=== PATIENT | male | born 1980 | race Caucasian/White ===

== ENCOUNTER 2018-01-26 08:15 | Emergency (ER) | payer BC ==
[2018-01-26] MEDS ORDERED: KETOROLAC 30 MG/ML INJ ONE (08:51)
[2018-01-26] MEDS ORDERED: ONDANSETRON 4 MG/2 ML VIAL ONE (08:51)
[2018-01-26] MEDS ORDERED: NA CHLORIDE 0.9% 1,000 ML ONE (08:51)
[2018-01-26] MEDS ORDERED: FENTANYL CITR 100 MCG/2 ML ONE ×2 (08:51→10:23)
[2018-01-26 08:58] LABS: Absolute Lymphocytes (CBC) 2.1 K/uL (0.7-4.9); Absolute Monocytes 0.8 K/uL (0.1-1.3); Absolute Neutrophil 2.7 K/uL (1.8-8.0); Basophils % 1.2 % (0-1.3); Eosinophils % 6.1 % (0-4.4); Hematocrit 52.1 % (39.6-49.0); Lymphocytes % 35.2 % (15.3-44.8); MCH 28.5 pg (27.0-35.0); MCV 87.8 fL (80-100); Monocytes % 12.5 % (3.3-12.3); RBC Red Blood Cell Count 5.94 M/uL (4.33-5.43)
[2018-01-26 09:13] LABS: Urine Bacteria <20 /HPF (NONE SEEN)
[2018-01-26 09:13] LABS: Urine Blood 3+ (NEG); Urine Glucose NEGATIVE (NEG); Urine Protein 1+ (NEG); Urine Specific Gravity 1.025 (1.005-1.030)
[2018-01-26 09:14] LABS: Urine Culture Reflex Order NOT NEEDED
[2018-01-26 09:23] LABS: Albumin 3.7 g/dL (3.4-5.0); Bilirubin Direct 0.1 mg/dL (0-0.2); Bilirubin Total 0.4 mg/dL (0.2-1.0); Potassium 3.7 mmol/L (3.5-5.1); Protein, Total 7.6 g/dL (6.4-8.2)
--- NOTE | 2018-01-26 09:35 | RAD REPORT ---
EXAM DESCRIPTION: CT - Stone Protocol - 01/26/2018 9:06 am CLINICAL HISTORY: Abdominal pain. Flank pain COMPARISON: October 2016 TECHNIQUE: Computed axial tomography of the abdomen pelvis was obtained without oral or IV contrast. Lack of IV and oral contrast limits evaluation of solid organs, bowel, and vessels. Coronal reformat destiny images were obtained and reviewed. All CT scans are performed using dose optimization technique as appropriate and may include automated exposure control or mA/KV adjustment according to patient size. FINDINGS: Small bilateral renal calculi are present. Mild right hydronephrosis is seen. A ureteral c alculus is not visualized. A 3 millimeter calculus is present within the posterior bladder to the lef t of midline. The liver, spleen, pancreas and adrenals appear grossly normal There is no evidence of diverticulitis. The appendix appears normal IMPRESSION: Mild right hydronephrosis is present without an obstructing calculus. A 3 millimeter aruna culus is present within the bladder which may have recently passed from the right ureter.
--- NOTE | 2018-01-26 10:19 | EDPHYS ---
Physician Documentation [facility] Name: Jyoti Olson Age: 37 yrs Sex: Male : 1980 Arrival Date: 01/26/2018 Time: 08:18 Bed 20 Private MD: Jacky Vidal T ED Physician Garry Wright HPI: 01/26 08:30 This 37 yrs old Male presents to ER via Ambulatory with complaints of jmm Possible Kidney Stone. 08:30 The patient presents with abdominal pain right flank. Onset: The symptoms/episode jmm began/occurred acutely, just prior to arrival. The symptoms radiate to groin. Associated signs and symptoms: Pertinent positives: testicular pain, Pertinent negatives: diarrhea, fever, vomiting. The symptoms are described as achy, sharp. Severity of pain:. The patient has experienced similar episodes in the past. This is a 37 year old male with a history of kidney stones that presents to the ED with right flank pain beginning earlier this morning. Patient states the pain radiates to his right scrotum. Denies ever, denies gross hematuria, denies vomiting. . Historical: - Allergies: 08:36 Naproxen; ch 08:36 Aleve; ch - Home Meds: 08:36 Provigil 100 mg Oral tab twice a day [Active]; testosterone 200 MG TWICE A WEEK ch [Active]; Seroquel 50 mg Oral tab 1 tab [Active]; Crestor oral oral [Active]; - PMHx: 08:36 allergies; Hormone Replacement; Kidney stones; Hyperlipidemia; ch - PSHx: 08:36 hand surgery; mouth; ch - Immunization history:: Adult Immunizations up to date, Flu vaccine is up to date. - Social history:: Smoking status: Patient uses tobacco products, denies chronic smoking, but will smoke occasionally, Patient uses alcohol, occasionally. Patient/guardian denies using street drugs. - Ebola Screening: : Patient negative for fever greater than or equal to 101.5 degrees Fahrenheit, and additional compatible Ebola Virus Disease symptoms Patient denies exposure to infectious person Patient denies travel to an Ebola-affected area in the 21 days before illness onset No symptoms or risks identified at this time. ROS: 08:30 Constitutional: Negative for fever. jmm 08:30 Abdomen/GI: Positive for abdominal pain, nausea. 08:30 Back: Positive for flank pain, on the right. 08:30 : Negative for hematuria. 08:30 Skin: Negative for 08:30 All other systems are negative. Exam: 08:30 Head/Face: atraumatic. [facility] 08:30 Constitutional: The patient appears in no acute distress, alert, awake. 08:30 Constitutional: The patient appears uncomfortable. 08:30 Cardiovascular: Rate: normal. 08:30 Respiratory: the patient does not display signs of respiratory distress, Respirations: normal, Breath sounds: are clear throughout. 08:30 Back: ROM is normal, CVA tenderness, that is moderate, is noted on the right. 08:30 Musculoskeletal/extremity: ROM: intact in all extremities. 08:30 Skin: Appearance: Color: normal in color. 08:30 Neuro: Orientation: is normal, Mentation: is normal, Memory: is normal, Gait: is steady. 08:30 Psych: Behavior/mood is pleasant, cooperative. Vital Signs: 08:36 BP 153 / 106; Pulse 72; Resp 14; Temp 99.1; Pulse Ox 99% on R/A; Weight 93.44 kg; Height 5 ft. 5 in. (165.10 cm); Pain 10/10; 09:35 BP 141 / 82; Pulse 65; Resp 18; Temp 97.9; Pulse Ox 99% on R/A; Pain 7/10; ch 10:45 BP 138 / 90; Pulse 68; Resp 16; Temp 98; Pulse Ox 99% on R/A; Pain 3/10; ch 08:36 Body Mass Index 34.28 (93.44 kg, 165.10 cm) MDM: 08:30 Data reviewed: vital signs, nurses notes. [facility] 08:37 Patient medically screened. [facility] 10:17 Data reviewed: lab test result(s), radiologic studies, CT scan. Counseling: I had a [facility] detailed discussion with the patient and/or guardian regarding: the historical points, exam findings, and any diagnostic results supporting the discharge/admit diagnosis, the presence of at least one elevated blood pressure reading (>120/80) during this emergency department visit, lab results, radiology results, the need for outpatient follow up, to return to the emergency department if symptoms worsen or persist or if there are any questions or concerns that arise at home. Response to treatment: the patient's symptoms have markedly improved after treatment. 07/03 08:38 Order name: Amylase, Serum; Complete Time: 09:26 [facility] 01/26 08:38 Order name: Basic Metabolic Panel; Complete Time: 09:26 [facility] 01/26 08:38 Order name: CBC with Diff; Complete Time: 09:13 [facility] 01/26 08:38 Order name: Creatinine for Radiology; Complete Time: 09:26 [facility] 01/26 08:38 Order name: Hepatic Function; Complete Time: 09:26 [facility] 01/26 08:38 Order name: Lipase; Complete Time: 09:26 [facility] 01/26 08:38 Order name: Urine Microscopic Only; Complete Time: 09:15 [facility] 01/26 08:41 Order name: CT Stone Protocol; Complete Time: 09:41 [facility] 01/26 09:07 Order name: Urine Dipstick--Ancillary (enter results); Complete Time: 09:14 ag 01/26 08:38 Order name: IV Saline Lock; Complete Time: 08:59 [facility] 01/26 08:38 Order name: Labs collected and sent; Complete Time: 08:59 jm 01/26 08:38 Order name: Urine Dipstick-Ancillary (obtain specimen); Complete Time: 08:52 jmm Administered Medications: 08:58 Drug: Zofran 4 mg Route: IVP; Site: left antecubital; ch 09:23 Follow up: Response: No adverse reaction; Marked relief of symptoms ch 08:58 Drug: NS 0.9% 1000 ml Route: IV; Rate: 1 bolus; Site: left antecubital; ch 09:23 Follow up: IV Status: Completed infusion; IV Intake: 1000ml ch 08:58 Drug: fentaNYL (PF) 50 mcg Route: IVP; Site: left antecubital; ch 09:23 Follow up: Response: No adverse reaction; Marked relief of symptoms ch 08:59 Drug: Ketorolac 30 mg Route: IVP; Site: left antecubital; ch 09:23 Follow up: Response: No adverse reaction; Marked relief of symptoms ch 10:18 Drug: fentaNYL (PF) 50 mcg Route: IVP; Site: left antecubital; ch 10:27 Follow up: Response: No adverse reaction; Marked relief of symptoms ch 11:34 Follow up: Response: No adverse reaction; Marked relief of symptoms ch 10:47 Not Given (Duplicate Order): NS 0.9% 1000 ml IV at 1 bolus Per protocol; 1000 mL bolus Disposition: 15:00 Co-signature as Attending Physician, Garry Wright MD I agree with the assessment and [facility] plan of care. Disposition: 01/26/18 10:18 Discharged to Home. Impression: Calculus of ureter, Unspecified renal colic. - Condition is Stable. - Discharge Instructions: Kidney Stones, Ureteral Colic. - Prescriptions for Tylenol- Codeine #3 300-30 mg Oral Tablet - take 1 tablet by ORAL route every 6 hours As needed; 12 tablet. Zofran 4 mg Oral Tablet - take 1 tablet by ORAL route every 12 hours As needed; 12 tablet. - Work release form, Medication Reconciliation Form, Thank You Letter, Antibiotic Education, Prescription Opioid Use form. - Follow up: Jacky Vidal MD; When: 2 - 3 days; Reason: Continuance of care. Signatures: Dispatcher [employer] EDMS Chio Perkins RN RN ch Anderson, Corey, MD MD cha Mickail, Joel, PA PA [facility] Corrections: (The following items were deleted from the chart) 10:47 10:18 01/26/2018 10:18 Discharged to Home. Impression: Calculus of ureter; Unspecified ch renal colic. Condition is Stable. Forms are Medication Reconciliation Form, Thank You Letter, Antibiotic Education, Prescription Opioid Use. Follow up: Jacky Vidal; When: 2 - 3 days; Reason: Continuance of care. sary
--- NOTE | 2018-01-26 10:19 | ER ---
Nurse's Notes [facility] Name: Jyoti Olson Age: 37 yrs Sex: Male : 1980 Arrival Date: 01/26/2018 Time: 08:18 Bed 20 Private MD: Jacky Vidal T Diagnosis: Calculus of ureter;Unspecified renal colic Presentation: 01/26 08:33 Presenting complaint: Patient states: i think i am passing another kidney stone. mid ch back and flank pain since 0530 today. difficulty urinating. Transition of care: patient was not received from another setting of care. Onset of symptoms was January 26, 2018 at 05:30. Risk Assessment: Do you want to hurt yourself or someone else? Patient reports no desire to harm self or others. Initial Sepsis Screen: Does the patient meet any 2 criteria? No. Patient's initial sepsis screen is negative. Does the patient have a suspected source of infection? No. Patient's initial sepsis screen is negative. Care prior to arrival: None. 08:33 Method Of Arrival: Ambulatory 08:33 Acuity: CHANTELLE 3 ch Triage Assessment: 08:36 General: Appears in no apparent distress. uncomfortable, Behavior is cooperative, ch restless. Pain: Complains of pain in low back area, mid back area, right mid back and groin Pain currently is 10 out of 10 on a pain scale. Neuro: No deficits noted. GI: No signs and/or symptoms were reported involving the gastrointestinal system. : Reports pain flank(s), in lower back testicle. Historical: - Allergies: 08:36 Naproxen; 08:36 Aleve; - Home Meds: 08:36 Provigil 100 mg Oral tab twice a day [Active]; testosterone 200 MG TWICE A WEEK [Active]; Seroquel 50 mg Oral tab 1 tab [Active]; Crestor oral oral [Active]; - PMHx: 08:36 allergies; Hormone Replacement; Kidney stones; Hyperlipidemia; ch - PSHx: 08:36 hand surgery; mouth; ch - Immunization history:: Adult Immunizations up to date, Flu vaccine is up to date. - Social history:: Smoking status: Patient uses tobacco products, denies chronic smoking, but will smoke occasionally, Patient uses alcohol, occasionally. Patient/guardian denies using street drugs. - Ebola Screening: : Patient negative for fever greater than or equal to 101.5 degrees Fahrenheit, and additional compatible Ebola Virus Disease symptoms Patient denies exposure to infectious person Patient denies travel to an Ebola-affected area in the 21 days before illness onset No symptoms or risks identified at this time. Screenin:59 Abuse screen: Denies threats or abuse. Denies injuries from another. Nutritional ch screening: No deficits noted. Tuberculosis screening: No symptoms or risk factors identified. Fall Risk None identified. Assessment: 08:59 Reassessment: Patient appears in no apparent distress at this time. pt medicated for ch pain. pt is still restless in room, CT notified pt has been medicated, pt verb understanding of need to hold still for ct. General: Appears in no apparent distress. uncomfortable. 09:35 Reassessment: Patient appears in no apparent distress at this time. Patient and/or ch family updated on plan of care and expected duration. Pain level reassessed. Patient is alert, oriented x 3, equal unlabored respirations, skin warm/dry/pink. Patient states feeling better. Patient states symptoms have improved. 10:27 Reassessment: pt urinates in room, pt has a stone in the urinal. pt states he feels ch better but still hurts. family at bedside, pt to be discharged. 10:45 Reassessment: Patient appears in no apparent distress at this time. No changes from previously documented assessment. Patient and/or family updated on plan of care and expected duration. Pain level reassessed. Patient is alert, oriented x 3, equal unlabored respirations, skin warm/dry/pink. 11:34 GI: Bowel sounds present X 4 quads. Abd is soft and non tender X 4 quads. Vital Signs: 08:36 BP 153 / 106; Pulse 72; Resp 14; Temp 99.1; Pulse Ox 99% on R/A; Weight 93.44 kg; Height 5 ft. 5 in. (165.10 cm); Pain 10/10; 09:35 BP 141 / 82; Pulse 65; Resp 18; Temp 97.9; Pulse Ox 99% on R/A; Pain 7/10; ch 10:45 BP 138 / 90; Pulse 68; Resp 16; Temp 98; Pulse Ox 99% on R/A; Pain 3/10; ch 08:36 Body Mass Index 34.28 (93.44 kg, 165.10 cm) ED Course: 08:18 Patient arrived in ED. mr 08:18 Jacky Vidal MD is Private Physician. mr 08:29 [facility] jmm 08:29 Garry Wright MD is Attending Physician. jmm 08:33 Chio Perkins, RN is Primary Nurse. ch 08:34 Triage completed. ch 08:36 Arm band placed on left wrist. Patient placed in an exam room, on a stretcher, on pulse ch oximetry. 08:45 No apparent distress. Resting quietly. ch 08:45 No provider procedures requiring assistance completed. Inserted saline lock: 18 gauge ch in left antecubital area, using aseptic technique. Blood collected. 08:49 Patient has correct armband on for positive identification. Bed in low position. Call mh5 light in reach. Pulse ox on. NIBP on. 08:49 Urine collected: clean catch specimen, clear. [facility] 08:52 Urine Microscopic Only Sent. [facility] 08:59 Warm blanket given. ch 09:06 CT Stone Protocol In Process Unspecified. EDMS 10:17 Jacky Viadl MD is Referral Physician. jmm 10:45 IV discontinued, intact, bleeding controlled, No redness/swelling at site. Pressure ch dressing applied. Administered Medications: 08:58 Drug: Zofran 4 mg Route: IVP; Site: left antecubital; ch 09:23 Follow up: Response: No adverse reaction; Marked relief of symptoms ch 08:58 Drug: NS 0.9% 1000 ml Route: IV; Rate: 1 bolus; Site: left antecubital; ch 09:23 Follow up: IV Status: Completed infusion; IV Intake: 1000ml ch 08:58 Drug: fentaNYL (PF) 50 mcg Route: IVP; Site: left antecubital; ch 09:23 Follow up: Response: No adverse reaction; Marked relief of symptoms ch 08:59 Drug: Ketorolac 30 mg Route: IVP; Site: left antecubital; ch 09:23 Follow up: Response: No adverse reaction; Marked relief of symptoms ch 10:18 Drug: fentaNYL (PF) 50 mcg Route: IVP; Site: left antecubital; ch 10:27 Follow up: Response: No adverse reaction; Marked relief of symptoms ch 11:34 Follow up: Response: No adverse reaction; Marked relief of symptoms 10:47 Not Given (Duplicate Order): NS 0.9% 1000 ml IV at 1 bolus Per protocol; 1000 mL bolus Intake: 09:23 IV: 1000ml; Total: 1000ml. Outcome: 10:18 Discharge ordered by . sary 10:45 Discharged to home ambulatory, with family. 10:45 Condition: improved 10:45 Discharge instructions given to patient, family, Instructed on discharge instructions, follow up and referral plans. medication usage, Demonstrated understanding of instructions, follow-up care, medications, Prescriptions given X 2. 10:47 Patient left the ED. Signatures: Dispatcher [employer] EDChio Watson, JANEY RN Sadiq Pérez PA PA jmm Rivera, Maria mr Martinez, Maria [facility]
[2018-01-26 11:08] VITALS: O2SAT 99
[2018-01-26 11:10] VITALS: BP 138/90; TEMP 98
== END 2018-01-26 10:47 | disposition home or self-care (01) ==
LOC: ER 08:15
DX: N20.1 Calculus of ureter (principal); N23 Unspecified renal colic; E78.5 Hyperlipidemia, unspecified; Z72.0 Tobacco use; Z88.6 Allergy status to analgesic agent
CPT/HCPCS: 36415; 74176; 76377; 80048; 80076; 81003; 81015; 82150; 83690; 85025; 96374; 96375; 99284; J2405; J3010; J7030

== ENCOUNTER 2018-11-02 09:28 | Emergency (ER) | payer BC, OTHER ==
[2018-11-02 10:03] LABS: Absolute Monocytes 0.9 K/uL (0.1-1.3); Absolute Neutrophil 7.3 K/uL (1.8-8.0); Basophils % 0.9 % (0-1.3); Eosinophils % 7.5 % (0-4.4); Hematocrit 46.6 % (39.6-49.0); Lymphocytes % 18.1 % (15.3-44.8); MPV 8.1 fL (7.6-11.3); Monocytes % 8.3 % (3.3-12.3); RBC Red Blood Cell Count 5.23 M/uL (4.33-5.43)
[2018-11-02] MEDS ORDERED: PROMETHAZINE 25 MG/ML VIAL ONE (10:07)
[2018-11-02] MEDS ORDERED: MEPERIDINE HCL 50 MG/ML AMP ONE ×2 (10:07→11:03)
[2018-11-02] MEDS ORDERED: NA CHLORIDE 0.9% 1,000 ML ONE (10:07)
[2018-11-02] MEDS ORDERED: TAMSULOSIN 0.4 MG SR CAP ONE (10:07)
[2018-11-02 10:29] LABS: Urine Blood 3+ (NEG); Urine Glucose NEGATIVE (NEG); Urine Protein NEGATIVE (NEG)
--- NOTE | 2018-11-02 10:40 | RAD REPORT ---
EXAM DESCRIPTION: CT - Stone Protocol - 11/02/2018 10:31 am CLINICAL HISTORY: Flank pain. left flank pain, hx of stones COMPARISON: Stone Protocol dated 01/26/2018 TECHNIQUE: Axial images were obtained without oral or IV contrast. Lack of contrast limits solid org an and vascular assessment. The [id number] spans the entirety of the system partially obscuring uppermost abdomen and lung bases. Coronal reformatted images were obtained and reviewed. All CT scans are performed using dose optimization technique as appropriate and may include automated exposure control or mA/KV adjustment according to patient size. FINDINGS: The lower lung corral are clear. Imaged portions of the liver and spleen show no suspicious findings on non-contrast imaging. The panc reas and adrenal glands are normal. No pathologic lymphadenopathy in the abdomen or pelvis. 5-6 mm stone (900 HU) is present mid left ureter resulting in mild left hydronephrosis. Additional pu nctate bilateral nephrolithiasis seen. No bowel obstruction, free air, free fluid or abscess. Normal appendix noted.Moderate stool is presen t in the colon. No significant bony abnormality. IMPRESSION: 5-6 mm stone mid left ureter resulting mild left hydronephrosis. Additional punctate bilateral nephrolithiasis.
[2018-11-02] MEDS ORDERED: MAGNESIUM SULFATE 1 gm IVPB 1 GM/100 ML BAG IV ONE (11:03)
--- NOTE | 2018-11-02 11:43 | ER ---
Nurse's Notes [facility] Name: Jyoti Olson Age: 38 yrs Sex: Male : 1980 Arrival Date: 11/02/2018 Time: : Bed 15 Private MD: Karlos Watson Diagnosis: Ureterolithiasis Presentation: 11/02 09:37 Presenting complaint: Patient states: left flank pain and groin pain. Pt states "I have aa5 a kidney stone". Transition of care: patient was not received from another setting of care. Onset of symptoms was October 2018. Risk Assessment: Do you want to hurt yourself or someone else? Patient reports no desire to harm self or others. Initial Sepsis Screen: Does the patient meet any 2 criteria? No. Patient's initial sepsis screen is negative. Does the patient have a suspected source of infection? No. Patient's initial sepsis screen is negative. Care prior to arrival: None. 09:37 Method Of Arrival: Ambulatory aa5 09:37 Acuity: CHANTELLE 3 aa5 Historical: - Allergies: 09:39 Aleve; aa5 09:39 Naproxen; aa5 - Home Meds: 09:42 testosterone 200 MG TWICE A WEEK [Active]; Seroquel 50 mg Oral tab 1 tab [Active]; tw2 Provigil 100 mg Oral tab twice a day [Active]; Crestor Oral [Active]; - PMHx: 09:39 allergies; Hormone Replacement; Hyperlipidemia; Kidney stones; aa5 - PSHx: 09:39 hand surgery; mouth; aa5 - Immunization history:: Adult Immunizations. - Ebola Screening: : No symptoms or risks identified at this time. - Social history:: Smoking status: . - Family history:: not pertinent. - Hospitalizations: : No recent hospitalization is reported. Screenin:41 Abuse screen: Denies threats or abuse. Nutritional screening: No deficits noted. tw2 Tuberculosis screening: No symptoms or risk factors identified. Fall Risk None identified. Assessment: 09:48 General: Appears uncomfortable, Behavior is calm, cooperative, appropriate for age. tw2 Pain: Complains of pain in left low back. Neuro: Level of Consciousness is awake, alert, obeys commands, Oriented to person, place, time, situation. Cardiovascular: Heart tones S1 S2 Patient's skin is warm and dry. Respiratory: Airway is patent Respiratory effort is even, unlabored, Respiratory pattern is regular, symmetrical, Breath sounds are clear bilaterally. GI: Abdomen is round non-distended, Bowel sounds present X 4 quads. Abd is soft X 4 quads. : Reports dark urine noted. EENT: No signs and/or symptoms were reported regarding the EENT system. Derm: No signs and/or symptoms reported regarding the dermatologic system. Musculoskeletal: Circulation, motion, and sensation intact. Range of motion: intact in all extremities. 10:38 Reassessment: Patient appears in no apparent distress at this time. Patient and/or tw2 family updated on plan of care and expected duration. Pain level reassessed. Patient is alert, oriented x 3, equal unlabored respirations, skin warm/dry/pink. 10:48 Reassessment: provider at bedside at this time with results. tw2 11:00 Reassessment: Patient appears in no apparent distress at this time. Patient and/or tw2 family updated on plan of care and expected duration. Pain level reassessed. Patient is alert, oriented x 3, equal unlabored respirations, skin warm/dry/pink. Patient states symptoms have not improved. 12:03 Reassessment: Patient appears in no apparent distress at this time. Patient and/or tw2 family updated on plan of care and expected duration. Pain level reassessed. Patient is alert, oriented x 3, equal unlabored respirations, skin warm/dry/pink. 12:23 Reassessment: Patient appears in no apparent distress at this time. Patient and/or tw2 family updated on plan of care and expected duration. Pain level reassessed. Patient is alert, oriented x 3, equal unlabored respirations, skin warm/dry/pink. Vital Signs: 09:39 BP 148 / 107; Pulse 80; Resp 18 S; Temp 98.1(TE); Pulse Ox 97% on R/A; aa5 10:38 BP 148 / 87; Pulse 57; Resp 17; Pulse Ox 99% on R/A; tw2 11:00 BP 121 / 74; Pulse 57; Resp 17; Pulse Ox 97% on R/A; tw2 12:03 BP 132 / 78; Pulse 51; Resp 17; Pulse Ox 99% on R/A; tw2 ED Course: 09:31 Patient arrived in ED. rg4 09:31 Karlos Watson MD is Private Physician. rg4 09:37 Arm band placed on. aa5 09:39 Triage completed. aa5 09:40 Екатерина Browne, RN is Primary Nurse. tw2 09:41 Arsenio Herrera MD is Attending Physician. rn 09:42 Bed in low position. Call light in reach. Pulse ox on. NIBP on. tw2 09:55 Inserted saline lock: 20 gauge in right antecubital area, using aseptic technique. tw2 Blood collected. 10:29 CT completed. Patient tolerated procedure well. Patient moved to CT via wheelchair. jg6 Patient moved back from CT. 10:30 CT Stone Protocol In Process Unspecified. EDMS 11:51 Awaiting: completion of IV medications and transportation prior to discharge. tw2 12:22 No provider procedures requiring assistance completed. IV discontinued, intact, tw2 bleeding controlled, No redness/swelling at site. Pressure dressing applied. Administered Medications: 09:57 Drug: Flomax 0.4 mg Route: PO; tw2 10:48 Follow up: Response: No adverse reaction tw2 09:58 Drug: Phenergan 12.5 mg Route: IVP; Site: right antecubital; tw2 10:48 Follow up: Response: No adverse reaction tw2 10:02 Drug: Demerol 50 mg Route: IVP; Site: right antecubital; tw2 10:48 Follow up: Response: No adverse reaction; Pain is unchanged, physician notified tw2 10:03 Drug: NS 0.9% 1000 ml Route: IV; Rate: 1000 ml; Site: right antecubital; tw2 10:49 Follow up: Response: No adverse reaction; IV Status: Completed infusion; IV Intake: tw2 1000ml 10:55 Drug: Demerol 50 mg Route: IVP; Site: right antecubital; tw2 11:41 Follow up: Response: No adverse reaction; Pain is unchanged, physician notified tw2 10:58 Drug: Magnesium Sulfate 1 grams Route: IVPB; Infused Over: 1 hrs; Site: right tw2 antecubital; 12:03 Follow up: Response: No adverse reaction; IV Status: Completed infusion tw2 11:50 Drug: morphine 6 mg Route: IVP; Site: right antecubital; tw2 12:20 Follow up: Response: No adverse reaction; Pain is decreased tw2 Intake: 10:49 IV: 1000ml; Total: 1000ml. tw2 Outcome: 11:43 Discharge ordered by . rn 12:23 Discharged to home ambulatory, with significant other. tw2 12:23 Condition: stable 12:23 Discharge instructions given to patient, significant other, Instructed on discharge instructions, follow up and referral plans. no drinking with medication, no driving heavy equipment, medication usage, Demonstrated understanding of instructions, follow-up care, medications, Prescriptions given X 3. 12:24 Patient left the ED. tw2 Signatures: Dispatcher [employer] EDMS Arsenio Herrera MD MD rn Calderon, Maryse, RN RN aa5 Екатерина Browne RN RN tw2 Antoinette Colon Jessica [email or web address] Corrections: (The following items were deleted from the chart) 10:38 10:38 Reassessment: Patient appears in no apparent distress at this time. No changes tw2 from previously documented assessment. Patient and/or family updated on plan of care and expected duration. Pain level reassessed. Patient is alert, oriented x 3, equal unlabored respirations, skin warm/dry/pink. tw2
--- NOTE | 2018-11-02 11:43 | EDPHYS ---
Physician Documentation [facility] Name: Jyoti Olson Age: 38 yrs Sex: Male : 1980 Arrival Date: 11/02/2018 Time: 09:31 Bed 15 Private MD: Karlos Watson ED Physician Arsenio Herrera HPI: 11/02 10:02 This 38 yrs old Male presents to ER via Ambulatory with complaints of rn Possible Kidney Stone. 10:02 The patient complains of pain in the left mid back. The pain radiates to the abdomen. rn Onset: The symptoms/episode began/occurred this morning. Modifying factors: The symptoms are alleviated by nothing. the symptoms are aggravated by nothing. Associated signs and symptoms: Pertinent positives: nausea. Severity of pain: At its worst the pain was moderate in the emergency department the pain is unchanged. The patient has experienced similar episodes in the past. The patient has not recently seen a physician. Reports left flank pain that radiates around to groin, began this AM, + hx of stones and identical pain, never required surgery for stones, able to pass onhis own.. Historical: - Allergies: 09:39 Aleve; aa5 09:39 Naproxen; aa5 - Home Meds: 09:42 testosterone 200 MG TWICE A WEEK [Active]; Seroquel 50 mg Oral tab 1 tab [Active]; tw2 Provigil 100 mg Oral tab twice a day [Active]; Crestor Oral [Active]; - PMHx: 09:39 allergies; Hormone Replacement; Hyperlipidemia; Kidney stones; aa5 - PSHx: 09:39 hand surgery; mouth; aa5 - Immunization history:: Adult Immunizations. - Ebola Screening: : No symptoms or risks identified at this time. - Social history:: Smoking status: . - Family history:: not pertinent. - Hospitalizations: : No recent hospitalization is reported. ROS: 10:02 Constitutional: Negative for fever, chills, and weight loss, Eyes: Negative for injury, rn pain, redness, and discharge, Neck: Negative for injury, pain, and swelling, Cardiovascular: Negative for chest pain, palpitations, and edema, Respiratory: Negative for shortness of breath, cough, wheezing, and pleuritic chest pain, Abdomen/GI: + left groin pain and nausea Back: + left flank pain MS/Extremity: Negative for injury and deformity, Skin: Negative for injury, rash, and discoloration, Neuro: Negative for headache, weakness, numbness, tingling, and seizure. Exam: 10:02 Constitutional: This is a well developed, well nourished patient who is awake, alert, rn standing and appears uncomfortable Head/Face: Normocephalic, atraumatic. ENT: MMM Abdomen/GI: soft, non-tender Back: No spinal tenderness. No costovertebral tenderness. Full range of motion. Skin: Warm, dry MS/ Extremity: Pulses equal, no cyanosis. Neurovascular intact. Full, normal range of motion. Equal circumference. Neuro: Awake and alert, GCS 15. Motor strength 5/5 in all extremities. Sensory grossly intact. Cerebellar exam normal. Normal gait. Vital Signs: 09:39 BP 148 / 107; Pulse 80; Resp 18 S; Temp 98.1(TE); Pulse Ox 97% on R/A; aa5 10:38 BP 148 / 87; Pulse 57; Resp 17; Pulse Ox 99% on R/A; tw2 11:00 BP 121 / 74; Pulse 57; Resp 17; Pulse Ox 97% on R/A; tw2 12:03 BP 132 / 78; Pulse 51; Resp 17; Pulse Ox 99% on R/A; tw2 MDM: 09:41 Patient medically screened. rn 11:42 Differential diagnosis: nephrolithiasis. rn 11:42 Data reviewed: vital signs, nurses notes, lab test result(s), radiologic studies, CT rn scan, and as a result, I will discharge patient. Counseling: I had a detailed discussion with the patient and/or guardian regarding: the historical points, exam findings, and any diagnostic results supporting the discharge/admit diagnosis, lab results, radiology results, the need for outpatient follow up, to return to the emergency department if symptoms worsen or persist or if there are any questions or concerns that arise at home. Response to treatment: the patient's symptoms have markedly improved after treatment, and as a result, I will discharge patient. Special discussion: I discussed with the patient/guardian in detail that at this point there is no indication for admission to the hospital. It is understood, however, that if the symptoms persist or worsen the patient needs to return immediately for re-evaluation. Based on the history and exam findings, there is no indication for further emergent testing or inpatient evaluation. I discussed with the patient/guardian the need to see the urologist for further evaluation of the symptoms. 11/02 09:48 Order name: BMP; Complete Time: 10:42 tw2 11/02 09:48 Order name: CBC with Diff; Complete Time: 10:42 tw2 11/02 09:53 Order name: CT Stone Protocol; Complete Time: 10:42 rn 11/02 10:08 Order name: Urine Dipstick--Ancillary (enter results); Complete Time: 10:42 bd 11/02 09:48 Order name: IV Saline Lock; Complete Time: 09:50 tw2 11/02 09:51 Order name: Urine Dipstick-Ancillary (obtain specimen); Complete Time: 09:51 tw2 Administered Medications: 09:57 Drug: Flomax 0.4 mg Route: PO; tw2 10:48 Follow up: Response: No adverse reaction tw2 09:58 Drug: Phenergan 12.5 mg Route: IVP; Site: right antecubital; tw2 10:48 Follow up: Response: No adverse reaction tw2 10:02 Drug: Demerol 50 mg Route: IVP; Site: right antecubital; tw2 10:48 Follow up: Response: No adverse reaction; Pain is unchanged, physician notified tw2 10:03 Drug: NS 0.9% 1000 ml Route: IV; Rate: 1000 ml; Site: right antecubital; tw2 10:49 Follow up: Response: No adverse reaction; IV Status: Completed infusion; IV Intake: tw2 1000ml 10:55 Drug: Demerol 50 mg Route: IVP; Site: right antecubital; tw2 11:41 Follow up: Response: No adverse reaction; Pain is unchanged, physician notified tw2 10:58 Drug: Magnesium Sulfate 1 grams Route: IVPB; Infused Over: 1 hrs; Site: right tw2 antecubital; 12:03 Follow up: Response: No adverse reaction; IV Status: Completed infusion tw2 11:50 Drug: morphine 6 mg Route: IVP; Site: right antecubital; tw2 12:20 Follow up: Response: No adverse reaction; Pain is decreased tw2 Disposition: 11/02/18 11:43 Discharged to Home. Impression: Ureterolithiasis. - Condition is Stable. - Discharge Instructions: Kidney Stones. - Prescriptions for Tylenol- Codeine #3 300-30 mg Oral Tablet - take 1 tablet by ORAL route every 6 hours As needed; 20 tablet. Flomax 0.4 mg Oral Capsule, Sust. Release 24 hr - take 1 capsule by ORAL route once daily 1/2 hour following the same meal each day; 5 capsule. promethazine 25 mg Oral Tablet - take 1 tablet by ORAL route every 6 hours As needed; 20 tablet. - Medication Reconciliation Form, Thank You Letter, Antibiotic Education, Prescription Opioid Use, Work release form, Family Work Release form. - Follow up: Private Physician; When: As needed; Reason: Recheck today's complaints, Re-evaluation by your physician. - Problem is new. - Symptoms have improved. Signatures: Dispatcher [employer] EDMS Arsenio Herrera MD MD rn Calderon, Audri RN RN aa5 Екатерина Browne RN RN tw2 Corrections: (The following items were deleted from the chart) 12:24 11:43 11/02/2018 11:43 Discharged to Home. Impression: Ureterolithiasis. Condition is tw2 Stable. Discharge Instructions: Kidney Stones. Prescriptions for Tylenol-Codeine #3 300-30 mg Oral Tablet - take 1 tablet by ORAL route every 6 hours As needed; 20 tablet, Flomax 0.4 mg Oral Capsule, Sust. Release 24 hr - take 1 capsule by ORAL route once daily 1/2 hour following the same meal each day; 5 capsule, promethazine 25 mg Oral Tablet - take 1 tablet by ORAL route every 6 hours As needed; 20 tablet. and Forms are Work release form, Family Work Release, Medication Reconciliation Form, Thank You Letter, Antibiotic Education, Prescription Opioid Use. Follow up: Private Physician; When: As needed; Reason: Recheck today's complaints, Re-evaluation by your physician. Problem is new. Symptoms have improved. rn
[2018-11-02] MEDS ORDERED: MORPHINE 4 MG/ML SYR ONE (11:55)
[2018-11-02] MEDS ORDERED: MORPHINE 2 MG/ML SYR ONE (11:55)
[2018-11-02 12:27] VITALS: TEMP 98.1
[2018-11-02 12:31] VITALS: BP 132/78; O2SAT 99
== END 2018-11-02 12:24 | disposition home or self-care (01) ==
LOC: ER 09:28
DX: N20.1 Calculus of ureter (principal); E78.5 Hyperlipidemia, unspecified; Z87.442 Personal history of urinary calculi; Z88.5 Allergy status to narcotic agent; Z88.6 Allergy status to analgesic agent
CPT/HCPCS: 36415; 74176; 76377; 80048; 81003; 85025; 96361; 96365; 96375; 99284; J2175; J2270; J2550; J3475; J7030

== ENCOUNTER 2024-09-14 07:40 | Emergency (ER) | payer BC ==
[2024-09-14] MEDS ORDERED: ONDANSETRON 4 MG/2 ML VIAL ONE (08:13)
[2024-09-14] MEDS ORDERED: MORPHINE 4 MG/ML SYR ONE (08:13)
[2024-09-14 08:30] LABS: Absolute Basophils 0.1 K/uL (0-0.5); Absolute Eosinophils 0.3 K/uL (0-0.5); Absolute Lymphocytes (CBC) 1.7 K/uL (0.7-4.9); Absolute Monocytes 0.3 K/uL (0.1-1.3); Absolute Neutrophil 2.7 K/uL (1.8-8.0); Basophils % 1.5 % (0-1.3); Eosinophils % 6.1 % (0-4.4); Hematocrit 47.3 % (39.6-49.0); Hemoglobin 16.3 g/dL (13.6-17.9); Lymphocytes % 33.8 % (15.3-44.8); MCH 29.8 pg (27.0-35.0); MCHC 34.4 g/dL (32.0-36.0); MCV 86.4 fL (80-100); MPV 8.5 fL (7.6-11.3); Monocytes % 6.4 % (3.3-12.3); Neutrophils % 52.2 % (41.7-73.7); Nucleated Red Blood Cells % 0.1 % (0-0); Platelets 240 thou/uL (152-406); RBC Red Blood Cell Count 5.47 M/uL (4.33-5.43)
[2024-09-14 08:36] LABS: Anion Gap 7.9 mEq/L (5.0-15.0); Potassium 3.9 mEq/L (3.5-5.1)
--- NOTE | 2024-09-14 08:40 | RAD REPORT ---
EXAMINATION: CT HEAD WITHOUT CONTRAST CT CERVICAL SPINE WITHOUT CONTRAST CLINICAL INDICATION: Male, 44 years old. fall down 10 stairs, head/back pain TECHNIQUE: Axial CT images from the skull base to the vertex without intravenous contrast. Axial CT i mages through the cervical spine were obtained without intravenous contrast. Sagittal and coronal reformatted images were created from the data set. Coronal and sagittal reformatted images were creat ed from the data set. One or more of the following dose reduction techniques were used: Automated exposure control, adjustment of the mA and/or kV according to patient size, and/or iterative reconstr uction. Unless otherwise specified, incidental findings do not require dedicated imaging follow-up. [id number]. COMPARISON: No prior exam. FINDINGS: Head: INTRACRANIAL: No acute intracranial hemorrhage. No hydrocephalus. No mass effect or midline shift. No significant white matter disease VASCULATURE: No visualized abnormalities in the arteries or dural venous sinuses. SCALP/SKULL: No significant soft tissue or osseous abnormalities. SINUSES: The visualized paranasal sinuses and mastoid air cells are predominantly clear. Cervical spine: ALIGNMENT: The cervical spine has normal alignment without scoliosis or spondylolisthesis. BONE: Vertebral body heights are maintained. No aggressive osseous lesions. DEGENERATIVE CHANGES: Mild cervical spondylosis with evidence of mild bilateral neural foraminal narr owing. No central spinal stenosis identified. SOFT TISSUE: No significant abnormalities in the soft tissue of the neck. The visualized lung apices are clear. IMPRESSION: No acute intracranial abnormality. No acute fracture or traumatic malalignment of the cervical spine.
[2024-09-14 08:41] LABS: PT Prothrombin Time 10.9 SECONDS (9.4-12.5); PTT, Activated Partial Thromb 34.5 SECONDS (24.3-36.9); Protime INR 1.04
--- NOTE | 2024-09-14 08:52 | RAD REPORT ---
EXAM: CT CHEST, ABDOMEN AND PELVIS WITHOUT CONTRAST CLINICAL INDICATION: Male, 44 years FALL TECHNIQUE: CT chest, abdomen and pelvis was performed, with IV contrast, as per department protocol. Axial, sagittal and coronal reconstructions were obtained. One or more of the following dose reduction techniques were used: Automated exposure control, adjustment of the mA and/or kV according to the patient size, and/or iterative reconstruction. Unless otherwise specified, incidental findings do not require dedicated imaging follow-up. [id number]. COMPARISON: No prior exam. FINDINGS: Chest: LOWER NECK: Visualized thyroid gland and soft tissues are normal. LUNGS AND AIRWAYS: Airways are clear. No evidence of airspace or interstitial process.No suspicious a nd/or stable pulmonary nodules. PLEURA: No pleural effusion. No pneumothorax. Hemidiaphragms are normally positioned. MEDIASTINUM AND LYMPH NODES: No mediastinal mass or fluid collection. Normal size mediastinal, hilar, and axillary lymph nodes. Mild diffuse esophageal wall thickening. This likely reflect esophagitis. THORACIC AORTA: No thoracic aortic aneurysm. PULMONARY ARTERIES: Caliber is within normal limits. HEART: Normal heart size. No coronary calcifications.No significant pericardial effusion. Abdomen/Pelvis UPPER GI: No significant abnormality. LIVER: No significant focal abnormality. GALLBLADDER/BILE DUCTS: No biliary ductal dilatation.? PANCREAS: No mass, ductal dilation, or elizabeth-pancreatic fluid. SPLEEN: Unremarkable. ADRENALS: No adrenal masses. KIDNEYS AND URETERS: No hydronephrosis.Low density and/or too small to characterize renal lesions whi ch are statistically benign.Nonobstructive left nephrolithiasis. ABDOMINAL AORTA AND OTHER VESSELS: Normal caliber aorta and IVC. PERITONEUM: No abnormal free fluid. No free air. LYMPH NODES: No pathologic lymphadenopathy. ABDOMINAL WALL: Small fat containing umbilical hernia. SMALL BOWEL/COLON: Small bowel has normal course and caliber. No colonic wall thickening or pericolon ic inflammatory changes.Normal appendix. Mild diverticulosis without diverticulitis. URINARY BLADDER: Underdistended but grossly unremarkable. REPRODUCTIVE ORGANS: No pathologic process. MUSCULOSKELETAL: Multilevel degenerative changes in the spine. No acute fracture. ADDITIONAL FINDINGS: None. IMPRESSION: No acute or significant abnormalities in the chest, abdomen, or pelvis. Incidental findings as noted above.
--- NOTE | 2024-09-14 09:04 | ER ---
Nurse's Notes [facility] Name: Jyoti Olson Age: 44 yrs Sex: Male : 1980 Arrival Date: 09/14/2024 Time: 07:40 Bed 16 Private MD: Diagnosis: Fall (on) (from) unspecified stairs and steps;Contusion of lower back and pelvis;Unspecified injury of head, initial encounter Presentation: 09/14 07:46 Chief complaint: Patient states: fell down ten steps last night , has pain to lower and iw mid back, his feet went in the air and his head hit the steps. 07:46 Acuity: CHANTELLE 3 iw 07:47 Coronavirus screen: At this time, the client does not indicate any symptoms associated iw with coronavirus-19. Ebola Screen: No symptoms or risks identified at this time. Initial Sepsis Screen: Does the patient meet any 2 criteria? No. Patient's initial sepsis screen is negative. Does the patient have a suspected source of infection? No. Patient's initial sepsis screen is negative. Risk Assessment: Do you want to hurt yourself or someone else? Patient reports no desire to harm self or others. Onset of symptoms was September 13, 2024. 07:47 Method Of Arrival: Ambulatory iw Historical: - Allergies: 07:48 Naproxen; iw 07:48 Aleve; iw - PMHx: 07:48 Hyperlipidemia; Hormone Replacement; allergies; Kidney stones; narcolepsy; iw - Immunization history:: Adult Immunizations up to date. - Infectious Disease History:: Denies. - Family history:: not pertinent. - Hospitalizations: : No recent hospitalization is reported. - Social history:: Smoking status: Patient denies any tobacco usage or history of. Screenin:24 [facility] ED Fall Risk Assessment (Adult) History of falling in the last 3 months, ll1 including since admission Yes- single mechanical fall (1 pt) Confusion or Disorientation No (0 pts) Intoxicated or Sedated No (0 pts) Impaired Gait No (0 pts) Mobility Assist Device Used No (0 pt) Altered Elimination No (0 pt) Score/Fall Risk Level 3 or more points = High Risk Maintained a safe environment, Hourly rounding (assess needs \T\ fall precautionary measures) done. Abuse screen: Denies threats or abuse. Nutritional screening: No deficits noted. Tuberculosis screening: No symptoms or risk factors identified. Assessment: 08:23 General: Appears uncomfortable, Behavior is calm, cooperative, appropriate for age. ll1 Pain: Complains of pain in scalp and back Quality of pain is described as aching. Neuro: Reports headache. Musculoskeletal: Reports pain in back. 08:24 Reassessment: No changes from previously documented assessment. Patient and/or family ll1 updated on plan of care and expected duration. Pain level reassessed. Patient is alert, oriented x 3, equal unlabored respirations, skin warm/dry/pink. Vital Signs: 07:47 BP 163 / 104; Pulse 71; Resp 16; Pulse Ox 100% on R/A; Weight 95.25 kg; Height 5 ft. 6 iw in. ; Pain 9/10; 09:24 BP 148 / 100; Pulse 70; Resp 16; Temp 97.6; Pulse Ox 100% on R/A; Pain 9/10; ll1 07:47 Body Mass Index 33.89 (95.25 kg, 167.64 cm) iw 07:47 Pain Scale: Adult iw 09:24 Pain Scale: Adult ll1 ED Course: 07:42 Patient arrived in ED. im 07:44 Arsenio Herrera MD is Attending Physician. rn 07:47 Triage completed. iw 07:48 Arm band placed on. iw 08:09 True Martin, RN is Primary Nurse. ll1 08:18 Protime (+inr) Sent. bc6 08:18 Ptt, Activated Sent. bc6 08:18 Basic Metabolic Panel Sent. bc6 08:18 CBC with Diff Sent. bc6 08:18 Initial lab(s) drawn, by al, sent to lab. Inserted saline lock: 20 gauge in left bc6 antecubital area, using aseptic technique. Blood collected. Flushed with 10 mL NS. 08:32 Chest Abdomen Pelvis W Cont In Process Unspecified. EDMS 08:32 Head C Spine Mpr Wo Con In Process Unspecified. EDMS 09:24 IV discontinued, intact, bleeding controlled, No redness/swelling at site. Pressure ll1 dressing applied. 09:26 Patient has correct armband on for positive identification. Provided Education on: ER ll1 procedures and process. 09:26 No provider procedures requiring assistance completed. ll1 Administered Medications: 08:23 Drug: morphine IVP or IV 4 mg IVP once over 4 mins Route: IVP; Infused Over: 4 mins; 1 Site: right antecubital; 09:23 Follow up: Response: No adverse reaction 1 08:23 Drug: Ondansetron IVP 4 mg IVP once; over 2 minutes Route: IVP; Site: right antecubital;1 09:23 Follow up: Response: No adverse reaction 1 09:23 Drug: [place] PO 10 mg-325 mg 1 tabs PO once Route: PO; 1 09:23 Follow up: Response: No adverse reaction 1 Medication: 09:26 VIS not applicable for this client. 1 Outcome: :04 Discharge ordered by . pedro 09:26 Discharged to home ambulatory, [facility] :26 Condition: stable :26 Discharge instructions given to patient, Instructed on discharge instructions, follow up and referral plans. Demonstrated understanding of instructions, follow-up care, :27 Patient left the ED. [facility] Signatures: Dispatcher [employer] EDYumiko Wasserman RN RN Arsenio Herrera MD MD rn Lewis, Lynsay, RN RN [facility] Tatum Barnes 6 Lilliana Rolon
--- NOTE | 2024-09-14 09:04 | EDPHYS ---
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 08:26 Details of fall: The patient fell from a height, down approximately 10 stairs. Onset: rn The symptoms/episode began/occurred last night. Associated injuries: The patient sustained injury to the head, upper back injury, injury to the low back. Severity of symptoms: At their worst the symptoms were moderate, in the emergency department the symptoms are unchanged. The patient has not experienced similar symptoms in the past. The patient has not recently seen a physician. Patient reports accidentally fell down flight of stairs, approximately 10 stairs, hit head but no LOC. No blood thinners. Reports majority of pain to the mid and lower back. Already has back problems prior to this injury. No bowel or bladder incontinence or retention. No extremity injury. Denies neck pain.. Historical: - Allergies: 07:48 Naproxen; iw 07:48 Aleve; iw - PMHx: 07:48 Hyperlipidemia; Hormone Replacement; allergies; Kidney stones; narcolepsy; iw - Immunization history:: Adult Immunizations up to date. - Infectious Disease History:: Denies. - Family history:: not pertinent. - Hospitalizations: : No recent hospitalization is reported. - Social history:: Smoking status: Patient denies any tobacco usage or history of. ROS: 08:26 Constitutional: Negative for fever, chills, and weight loss, Neck: Negative for injury, rn pain, and swelling, Cardiovascular: Negative for chest pain, palpitations, and edema, Respiratory: Negative for shortness of breath, cough, wheezing, and pleuritic chest pain, Abdomen/GI: Negative for abdominal pain, nausea, vomiting, diarrhea, and constipation, Back: Positive for mid and lower back pain : Negative for injury, bleeding, discharge, and swelling, MS/Extremity: Negative for injury and deformity, Neuro: Negative for headache, weakness, numbness, tingling, and seizure, Exam: 08:26 Constitutional: This is a well developed, well nourished patient who is awake, alert, rn sitting upright in bed Head/Face: Normocephalic, atraumatic. Neck: No midline cervical tenderness Chest/axilla: No rib tenderness or crepitus Cardiovascular: Regular rate and rhythm. No pulse deficits. Respiratory: No increased work of breathing, no retractions or nasal flaring. Abdomen/GI: Soft, non-tender Back: Lower thoracic and lumbar midline and perispinal tenderness. No masses. MS/ Extremity: Pulses equal, no cyanosis. Neurovascular intact. Full, normal range of motion. Equal circumference. Neuro: Awake and alert, GCS 15, oriented to person, place, time, and situation. Motor strength 5/5 in all extremities. Sensory grossly intact. Cerebellar exam normal. Normal gait. Vital Signs: 07:47 BP 163 / 104; Pulse 71; Resp 16; Pulse Ox 100% on R/A; Weight 95.25 kg; Height 5 ft. 6 iw in. ; Pain 9/10; 09:24 BP 148 / 100; Pulse 70; Resp 16; Temp 97.6; Pulse Ox 100% on R/A; Pain 9/10; ll1 07:47 Body Mass Index 33.89 (95.25 kg, 167.64 cm) iw 07:47 Pain Scale: Adult iw 09:24 Pain Scale: Adult ll1 MDM: 07:44 Medical Screening Exam initiated rn 09:03 Differential diagnosis: closed head injury, contusion, fracture, sprain, strain. Data rn reviewed: vital signs, nurses notes, lab test result(s), radiologic studies, CT scan, and as a result, I will discharge patient. Counseling: I had a detailed discussion with the patient and/or guardian regarding the historical points, exam findings, and any diagnostic results supporting the discharge/admit diagnosis, lab results, radiology results, the need for outpatient follow up, to return to the emergency department if symptoms worsen or persist or if there are any questions or concerns that arise at home. Response to treatment: the patient's symptoms have mildly improved after treatment, and as a result, I will discharge patient. Special discussion: I discussed with the patient/guardian in detail that at this point there is no indication for admission to the hospital. It is understood, however, that if the symptoms persist or worsen the patient needs to return immediately for re-evaluation. ED course: No acute findings and imaging. Specifically no fracture of spine or patient is mainly complaining about pain. Patient is ambulatory to bathroom. No focal neurological deficits to indicate spinal cord injury. Will discharge home with return precautions. Already has prescriptions for muscle relaxers.. 09/14 07:59 Order name: CBC with Diff; Complete Time: 08:47 rn 09/14 07:59 Order name: Basic Metabolic Panel; Complete Time: 08:47 rn 09/14 07:59 Order name: Protime (+inr); Complete Time: 08:47 rn 09/14 07:59 Order name: Ptt, Activated; Complete Time: 08:47 rn 09/14 08:22 Order name: Chest Abdomen Pelvis W Cont; Complete Time: 08:54 EDMS 09/14 08:23 Order name: Head C Spine Mpr Wo Con; Complete Time: 08:47 EDMS 09/14 07:59 Order name: IV Start; Complete Time: 08:09 rn Administered Medications: 08:23 Drug: morphine IVP or IV 4 mg IVP once over 4 mins Route: IVP; Infused Over: 4 mins; ll1 Site: right antecubital; 09:23 Follow up: Response: No adverse reaction ll1 08:23 Drug: Ondansetron IVP 4 mg IVP once; over 2 minutes Route: IVP; Site: right antecubital;ll1 09:23 Follow up: Response: No adverse reaction ll1 09:23 Drug: [facility] PO 10 mg-325 mg 1 tabs PO once Route: PO; ll1 09:23 Follow up: Response: No adverse reaction ll1 Disposition Summary: 09/14/24 09:04 Discharge Ordered Notes: Location: Home rn Problem: new rn Symptoms: have improved rn Condition: Stable rn Diagnosis - Fall (on) (from) unspecified stairs and steps rn - Contusion of lower back and pelvis rn - Unspecified injury of head, initial encounter rn Followup: rn - With: Private Physician - When: As needed - Reason: Recheck today's complaints, Re-evaluation by your physician Discharge Instructions: - Contusion rn - Head Injury, Adult rn - Discharge Summary Sheet ll1 Forms: - Medication Reconciliation Form 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 EDMS EDMS
[2024-09-14] MEDS ORDERED: HYDROCODONE/APAP 10/325 TAB ONE (09:14)
[2024-09-14 11:06] VITALS: BP 148/100; TEMP 97.6; O2SAT 100
== END 2024-09-14 09:27 | disposition home or self-care (01) ==
LOC: ER 07:40
DX: S30.0XXA Contusion of lower back and pelvis, initial encounter (principal); S09.90XA Unspecified injury of head, initial encounter; W10.9XXA Fall (on) (from) unspecified stairs and steps, initial encounter
CPT/HCPCS: 85025; 80048; 36415; 85610; 85730; 70450; 72125; 71260; 74177; Q9967; J2405